=== PATIENT | male | born 1955 | race Caucasian/White ===

== ENCOUNTER 2023-06-28 05:44 | Day surgery (SDC) | payer MEDICARE ==
[2023-06-24 15:22] LABS: BASOPHILS # (AUTO) 0.1 X10'3 (0-0.2); BASOPHILS % (AUTO) 0.7 % (0-1); EOSINOPHILS # (AUTO) 0.1 X10'3 (0-0.9); EOSINOPHILS % (AUTO) 0.6 % (0-6); LYMPHOCYTES # (AUTO) 1.3 X10'3 (1.1-4.8); LYMPHOCYTES % (AUTO) 12.9 % (21-51); MEAN CORPUSCULAR HEMOGLOBIN 33.1 PG (27.0-31.0); MEAN CORPUSCULAR HGB CONC 34.1 g/dL (33.0-36.5); MEAN CORPUSCULAR VOLUME 97.1 FL (78-98); MEAN PLATELET VOLUME 7.8 FL (7.4-10.4); MONOCYTES # (AUTO) 0.5 X10'3 (0-0.9); MONOCYTES % (AUTO) 5.5 % (2-12); NEUTROPHILS # (AUTO) 7.9 X10'3 (1.8-7.7); NEUTROPHILS % (AUTO) 80.3 % (42-75); PRE OP HEMATOCRIT 44.6 % (42.0-52.0); PRE OP HEMOGLOBIN 15.2 g/dL (14.0-17.9); PRE OP PLATELET COUNT 237 X10'3 (140-440); PRE OP WHITE BLOOD COUNT 9.8 10'3 (4.8-10.8); RED BLOOD COUNT 4.59 X10'6 (4.70-6.10); RED CELL DISTRIBUTION WIDTH 14.4 % (11.5-14.5)
[2023-06-24 15:40] LABS: ALBUMIN 3.3 G/DL (3.4-5.0); ALBUMIN/GLOBULIN RATIO 0.8 (1.1-1.5); ALKALINE PHOSPHATASE 164 IU/L (46-116); BLOOD UREA NITROGEN 16 MG/DL (7-18); BUN/CREATININE RATIO 17.6 (10.0-20.0); CALCIUM 9.2 MG/DL (8.5-10.1); CHLORIDE 105 MMOL/L (99-107); CREATININE 0.91 MG/DL (0.60-1.10); PRE OP ALT 37 U/L (30-65); PRE OP ANION GAP 8 (8-16); PRE OP AST 30 U/L (10-37); PRE OP BILIRUB, TOTAL 0.5 MG/DL (0.0-1.0); PRE OP GLUCOSE 121 MG/DL (70-104); PRE OP SODIUM 140 MMOL/L (135-145); TOTAL CARBON DIOXIDE 27.4 MMOL/L (24-32); TOTAL PROTEIN 7.3 G/DL (6.4-8.2); eGFR 82 ML/MIN
[2023-06-28] VITALS (13 sets, daily range): BP systolic 103–136; BP diastolic 62–90; PULSE 55–100; RESP 10–22; TEMP 97.3; O2SAT 93–100
[~2023-06-28] VITALS: Ht 180.3 cm; Wt 76.0 kg
[~2023-06-28 05:44] MED LIST: LEVO75TA7 PO; METH2.5T PO; METH2.5T55 PO; MULT-1085 PO; PRE5T PO; albuterol 2.5 MG/3 ML nebule NEB ONE; famotidine 20mg tablet PO ONE; methylPREDNISolone sod succ 125mg/2ml vial IV ONE; ringers solution, lacted 1,000 ML IV SCH
[2023-06-28] MEDS ORDERED: fentaNYL/PF 50MCG/1 ML 2ML syringe ONE (07:29)
[2023-06-28] MEDS ORDERED: sevoflurane 250ml liquid IH ONE (07:57)
[2023-06-28] MEDS ORDERED: rocuronium 10mg/ml inj IV ONE (08:28)
[2023-06-28] MEDS ORDERED: propofol inj 20 ML IV ONE (08:28)
[2023-06-28] MEDS ORDERED: ondansetron/PF 4mg/2ml inj ONE (08:28)
[2023-06-28] MEDS ORDERED: glycopyrrolate 0.2mg/ml inj ONE (08:28)
[2023-06-28] MEDS ORDERED: dexamethasone sod phosphate 4mg/ml inj. ONE (08:28)
[2023-06-28] MEDS ORDERED: LIDOcaine 2% (20mg/ml) 5ml vial ONE (08:28)
[2023-06-28] MEDS ORDERED: hydrocortisone sod succ/PF 100mg/2ml inj. ONE (08:28)
[2023-06-28] MEDS ORDERED: neostigmine methylsulfate 1 MG/ML 10ml vial ONE (08:28)
[2023-06-28] MEDS ORDERED: meperidine/PF 25mg/ml syringe IV PRN ×3 (08:35)
[2023-06-28] MEDS ORDERED: morphine 2 MG/ML inj. syringe IV PRN (08:35)
[2023-06-28] MEDS ORDERED: ringers solution, lacted 1,000 ML IV SCH (08:35)
[2023-06-28] MEDS ORDERED: morphine 4 MG/ML inj SYRINge IV PRN (08:35)
[2023-06-28] MEDS ORDERED: proCHLORperazine 10 MG/2 ml inj IV PRN (08:35)
[2023-06-28] MEDS ORDERED: ondansetron/PF 4mg/2ml inj IV PRN (08:35)
[2023-06-28] MEDS ORDERED: ipratropium/albuterol 3ml nebule NEB PRN (09:55)
== END 2023-06-28 10:20 | disposition home or self-care (01) ==
LOC: PAS 05:44
PROVIDERS: ATTEND Internal Medicine Critical Care Medicine
DX: R91.8 Other nonspecific abnormal finding of lung field (principal); C34.2 Malignant neoplasm of middle lobe, bronchus or lung; J43.9 Emphysema, unspecified; J98.4 Other disorders of lung; F17.210 Nicotine dependence, cigarettes, uncomplicated; M06.9 Rheumatoid arthritis, unspecified; Z88.5 Allergy status to narcotic agent; Z98.890 Other specified postprocedural states; Z79.899 Other long term (current) drug therapy
CPT/HCPCS: 31623; 31624; 31628; 31629; 31653; 36415; 71045; 71250; 80053; 82948; 85025; 87070; 93005; 94640; 94760; J1100; J1720; J2405; J2704; J2710; J2930; J3010; J3490; J7120; Z7506; Z7508; Z7512; 31622; 31625; 31626; 31627; 31654; A4618